=== PATIENT | male | born 1995 | race Caucasian/White ===

== ENCOUNTER 2018-02-14 08:09 | Emergency (ER) | payer MEDICAID ==
[~2018-02-14] VITALS: Ht 180.3 cm; Wt 117.9 kg
--- NOTE | 2018-02-14 08:17 | NUR ---
PT AMBULATES TO BED 8
[2018-02-14 08:24] VITALS: BP 127/81
--- NOTE | 2018-02-14 08:27 | NUR ---
Note undone in EDM - 02/14/18 at 0836 by [email or web address] / BIB MOTHER C/O fever, diarrhea x 2 days after eating [employer]urger. Denies acute abd pain. Dtr has similiar symptoms.PT STATED HAD LOOSE STOOL X 4 EPISODED THIS AM. DENIES N/V OR FEVER AT THIS TIME. SKIN IS PINK/WARM/DRY; AAOX4 WITH EVEN AND STEADY GAIT; LUNGS CLEAR BL. PATIENT STATES PAIN OF 0/10 AT THIS TIME. PATIENT POSITIONED FOR COMFORT; HOB ELEVATED; BEDRAILS UP X2; BED DOWN. ER MD MADE AWARE OF PT STATUS.
--- NOTE | 2018-02-14 08:38 | NUR ---
DR LO EVALUATING PT AT BEDSIDE
--- NOTE | 2018-02-14 08:39 | NUR ---
Patient being evaluated by DR LO at bedside.
[2018-02-14] MEDS ORDERED: ONDANSETRON 4 MG ODT PO ONE (08:45)
[2018-02-14 09:17] VITALS: BP 121/86
--- NOTE | 2018-02-14 09:18 | NUR ---
Patient discharged with v/s stable. Written and verbal after care instructions given and explained. Patient alert, oriented and verbalized understanding of instructions. Ambulatory with steady gait. All questions addressed prior to discharge. ID band removed. Patient advised to follow up with PMD. Rx of LOMOTIL&ZOFRAN given. Patient educated on indication of medication including possible reaction and side effects. Opportunity to ask questions provided and answered.
== END 2018-02-14 09:18 | disposition home or self-care (01) ==
LOC: MED 08:09
DX: R11.2 Nausea with vomiting, unspecified (principal); R19.7 Diarrhea, unspecified
CPT/HCPCS: 99283; S0119

== ENCOUNTER 2018-07-03 17:50 | Emergency (ER) | payer MEDICAID, OTHER ==
[~2018-07-03] VITALS: Ht 180.3 cm; Wt 113.4 kg
[2018-07-03 18:01] VITALS: BP 139/86
[2018-07-03] MEDS ORDERED: FAMOTIDINE 20 MG TAB PO ONE (18:40)
[2018-07-03] MEDS ORDERED: diphenhydrAMINE 50 MG/ML VIAL IM ONE (18:40)
[2018-07-03] MEDS ORDERED: DEXAMETHASONE 10 MG/ML VIAL IM ONE (18:40)
[2018-07-03] MEDS ORDERED: hydrOXYzine HCL 25 MG TAB PO ONE (18:40)
[2018-07-03 19:16] VITALS: BP 132/85
== END 2018-07-03 19:16 | disposition home or self-care (01) ==
LOC: MED 17:50
DX: L23.9 Allergic contact dermatitis, unspecified cause (principal)
CPT/HCPCS: 96372; 99283; J1100; J1200

== ENCOUNTER 2018-12-16 21:29 | Emergency (ER) | payer SELFPAY ==
[~2018-12-16] VITALS: Ht 180.3 cm; Wt 111.1 kg
[2018-12-16 21:30] VITALS: BP 137/62
--- NOTE | 2018-12-16 21:30 | NUR ---
TO BED # 03 AMBULATORY
--- NOTE | 2018-12-16 21:35 | NUR ---
PT CAME INTO ER WITH C/O HEADACHE, FEVER X 3 DAYS. PT STATED HE TOOK TYLENOL FOR PAIN AND FEVER THIS MORNING BUT HAD NO RELIEF. PT IS A/OX4. DENIES N/V/D. ER MADE AWARE OF STATUS. SAFETY MEASURES IN PLACE. Addendum: 12/16/18 at 2151 by [email or web address] PT CAME INTO ER WITH C/O HEADACHE, FEVER X 3 DAYS. PT STATED HE TOOK TYLENOL FOR PAIN AND FEVER THIS MORNING BUT HAD NO RELIEF. PT IS A/OX4. DENIES N/V/D. PT STATED HE HAS BEEN FEELING DIZZY. EYES PERRLA. CLEAR SPEECH NOTED. ER MADE AWARE OF STATUS. SAFETY MEASURES IN PLACE.
[2018-12-16] MEDS ORDERED: ACETAMINOPHEN EXTRA STRENGTH 500 MG TAB PO ONE (21:40)
[2018-12-16 22:04] VITALS: BP 132/82
--- NOTE | 2018-12-16 22:04 | NUR ---
Patient discharged with v/s stable. Written and verbal after care instructions given and explained. Patient alert, oriented and verbalized understanding of instructions. Ambulatory with steady gait. All questions addressed prior to discharge. ID band removed. Patient advised to follow up with PMD. Rx of PROMETHAZINE HYDROCHLORIDE, AZITHROMYCIN 250MG AND MOTRIN 800MG given. Patient educated on indication of medication including possible reaction and side effects. Opportunity to ask questions provided and answered.
== END 2018-12-16 22:04 | disposition home or self-care (01) ==
LOC: MED 21:29
DX: J02.8 Acute pharyngitis due to other specified organisms (principal); B96.89 Other specified bacterial agents as the cause of diseases classified elsewhere
CPT/HCPCS: 99283

== ENCOUNTER 2021-11-23 06:57 | Emergency (ER) | payer SELFPAY ==
[~2021-11-23] VITALS: Ht 180.3 cm; Wt 140.6 kg
[2021-11-23 07:03] VITALS: BP 131/76
--- NOTE | 2021-11-23 07:10 | NUR ---
pt ambulatory to bed 04.
[2021-11-23] MEDS ORDERED: IBUP-2213 PO (07:41)
[2021-11-23] MEDS ORDERED: CIPR5DRO6 LEFT EYE (07:41)
--- NOTE | 2021-11-23 07:52 | NUR ---
Patient discharged with v/s stable. Written and verbal after care instructions FOR BACTERIAL CONJUCTIVITIS given and explained. Patient alert, oriented and verbalized understanding of instructions. Ambulatory with steady gait. All questions addressed prior to discharge. ID band removed. Patient advised to follow up with PMD. Rx of CIPROFLOXACIN AND IBUPROFEN given. Opportunity to ask questions provided and answered.
--- NOTE | 2021-11-23 08:07 | NUR ---
The patient's care was reviewed and supervised by Kinza London RN.
== END 2021-11-23 07:52 | disposition home or self-care (01) ==
LOC: MED 06:57
DX: H10.9 Unspecified conjunctivitis (principal); F12.90 Cannabis use, unspecified, uncomplicated
CPT/HCPCS: 99283